=== PATIENT | female | born 1955 | race Caucasian/White ===

== ENCOUNTER 2017-03-12 13:45 | Emergency (ER) | payer OTHER ==
[2017-03-12] MEDS ORDERED: AMPICILLIN SOD/SULBACTAM 3 GM VIAL IV ONE (13:58)
--- NOTE | 2017-03-12 14:08 | ER Document Report ---
ED General - General Stated Complaint: DIFFICULTY BREATHING Time Seen by Provider: 03/12/17 13:58 Mode of Arrival: Medic Information source: Emergency Med Personnel Cannot obtain history due to: Altered mental status Notes: 61-year-old female presents with history of MS with concerns of sob. Pt has inoperable hiatal hernia, had vomiting episode and found satting 84% on RA in significant resp distress. Patient brought in by EMS emergency traffic due to respiratory failure being bagged TRAVEL OUTSIDE OF THE [place] IN LAST 30 DAYS: No - HPI Onset: Just prior to arrival Onset/Duration: Sudden Quality of pain: No pain Severity: Severe Pain Level: Denies Associated symptoms: Shortness of breath, Other - Confusion Exacerbated by: Denies Relieved by: Denies Similar symptoms previously: No Recently seen / treated by doctor: No - Related Data Allergies/Adverse Reactions: cefprozil Allergy (Unknown, Verified 03/12/17 15:26) citric acid Allergy (Unknown, Verified 03/12/17 15:26) codeine Allergy (Unknown, Verified 03/12/17 15:26) ezetimibe [From Zetia] Allergy (Unknown, Verified 03/12/17 15:26) fenofibrate [From Triglide] Allergy (Unknown, Verified 03/12/17 15:26) Latex, Natural Rubber Allergy (Unknown, Verified 03/12/17 15:26) lisinopril Allergy (Unknown, Verified 03/12/17 15:26) shellfish derived Allergy (Unknown, Verified 03/12/17 15:26) metatalone Allergy (Unknown, Uncoded 03/12/17 15:26) metheltrexate Allergy (Unknown, Uncoded 03/12/17 15:26) Past Medical History - Social History Smoking Status: Never Smoker Cigarette use (# per day): No Chew tobacco use (# tins/day): No Smoking Education Provided: No Family History: Reviewed & Not Pertinent Review of Systems - Review of Systems Notes: REVIEW OF SYSTEMS: CONSTITUTIONAL : Denies fever, chills, or sweats. Denies recent illness. EENT: Denies eye, ear, throat, or mouth pain or symptoms. Denies nasal or sinus congestion or discharge. Denies throat, tongue, or mouth swelling or difficulty swallowing. CARDIOVASCULAR: Denies chest pain. Denies palpitations or racing or irregular heart beat. Denies ankle edema. RESPIRATORY: Difficulty breathing and respiratory distress GASTROINTESTINAL: Denies abdominal pain or distention. Denies nausea, vomiting , or diarrhea. Denies blood in vomitus, stools, or per rectum. Denies black, tarry stools. Denies constipation. GENITOURINARY: Denies difficulty urinating, painful urination, burning, frequency, blood in urine, or discharge. FEMALE GENITOURINARY: Denies vaginal bleeding, heavy or abnormal periods, irregular periods. Denies vaginal discharge or odor. MUSCULOSKELETAL: Denies back or neck pain or stiffness. Denies joint pain or swelling. SKIN: Denies rash, lesions or sores. HEMATOLOGIC : Denies easy bruising or bleeding. LYMPHATIC: Denies swollen, enlarged glands. NEUROLOGICAL: Confusion PSYCHIATRIC: Denies anxiety or stress. Denies depression, suicidal ideation, or homicidal ideation. ALL OTHER SYSTEMS REVIEWED AND NEGATIVE. PHYSICAL EXAMINATION: GENERAL: Likely ill-appearing female HEAD: Atraumatic, normocephalic. EYES: Pupils equal round and reactive to light, extraocular movements intact, conjunctiva are normal. ENT: Nares patent, oropharynx clear without exudates. Moist mucous membranes. NECK: Normal range of motion, supple without lymphadenopathy LUNGS: Decreased breath sounds all throughout significant respiratory distress HEART: Regular rate and rhythm without murmurs ABDOMEN: Soft, nontender, nondistended abdomen. No guarding, no rebound. No masses appreciated. Female : deferred Musculoskeletal: Was moving right upper extremity NEUROLOGICAL: Patient quite confused PSYCH: Anxious SKIN: Warm, Dry, normal turgor, no rashes or lesions noted. Dictation was performed using [employer] voice recognition software Physical Exam - Vital signs Vitals: Resp Pulse Ox 17 92 03/12/17 13:51 03/12/17 13:51 Course - Re-evaluation Re-evalutation: 03/12/17 14:08 On arrival patient is noted to be bagged, I took the bag off to ask her questions and she desatted immediately to 90% within 30 seconds, before her O2 sats decreased further I continue to bagging, decision was made since she is a full code per EMS that the patient should be intubated given the level significant respiratory distress, she was intubated with no difficulty x-ray shows a large hiatal hernia 03/12/17 14:36 [employer] [facility] 03/12/17 14:57 Dr Martinez will accept the patient for trasnfer to the ICU 03/12/17 17:34 Patient continues to be hypotensive, 3 L fluid bolus was given her blood pressures were between 60s over 40s-90s over 50s, therefore central line was placed in the right IJ and levo fed will be started 03/12/17 18:39 [employer] [facility] is here to take the patient patient's pressure is much better at this time - Vital Signs Vital signs: Temp Pulse Resp BP Pulse Ox 96.2 F L 16 119/73 98 03/12/17 15:30 03/12/17 18:01 03/12/17 18:00 03/12/17 18:01 - Laboratory Result Diagrams: 03/12/17 13:53 03/12/17 13:53 Laboratory results interpreted by me: 03/12/17 03/12/17 03/12/17 13:53 13:53 13:53 WBC 20.6 H Plt Count 111 L Seg Neuts % (Manual) 82 H Band Neutrophils % 12 H Lymphocytes % (Manual) 3 L Abs Neuts (Manual) 19.4 H VBG pH 7.28 L VBG pCO2 76.3 H* VBG HCO3 35.3 H Sodium 117.9 L* Chloride 76 L Carbon Dioxide 34 H Creatinine 0.26 L Alkaline Phosphatase 176 H Urine Protein Urine Ketones Urine Blood Ur Leukocyte Esterase 03/12/17 17:51 WBC Plt Count Seg Neuts % (Manual) Band Neutrophils % Lymphocytes % (Manual) Abs Neuts (Manual) VBG pH VBG pCO2 VBG HCO3 Sodium Chloride Carbon Dioxide Creatinine Alkaline Phosphatase Urine Protein 100 H Urine Ketones 20 H Urine Blood MODERATE H Ur Leukocyte Esterase LARGE H - Diagnostic Test Radiology reviewed: Image reviewed, Reports reviewed Procedures - Central Line Right Internal jugular Time completed: 18:00 Consent obtained: Yes Central line pre-insertion: Sterile PPE donned, Chloraprep applied, Sterile drapes applied Central line size (Fr.): 20 Central line lumen type: Triple Anesthetic type: 1% Lidocaine mL's of anesthesia: 3 Ultrasound guided: Yes CM at insertion site: 3 Line secured with sutures: Yes Central line post-insertion: Blood return from lumens, Biopatch applied, Sutured , Sterile dressing applied, Position confirmed w/ CXR Number of attempts: 1 Complications: No - Intubation Orotracheal Time of Intubation: 14:00 Airway evaluation: Copious secretions, Neck immobility Mallampati Classification: Class 4 Medications: Etomidate, Succinylcholine Intubation method: Orotracheal Blade type: Molly Blade size: 4 ETT size: 7.0 ETT secured at: Teeth ETT secured at (cm): 22 Breath Sounds after Intubation: Equal End tidal CO2 confirmed: Yes Post Intubation Xray: Yes Intubation Complications: No complications Critical Care Note - Critical Care Note Total time excluding time spent on procedures (mins): 94 Comments: 85 minutes of critical care time spent in direct contact evaluating and reevaluating the patient, treating symptoms, reviewing labs and studies and speaking with family and consultants excluding any procedures Discharge - Discharge Clinical Impression: Septic shock, Severe hyponatremia Hypotension Qualifiers: Hypotension type: unspecified hypotension type Qualified Code(s): I95.9 - Hypotension, unspecified Aspiration pneumonia Qualifiers: Aspiration pneumonia type: unspecified Laterality: right Lung location: lower lobe of lung Qualified Code(s): J69.0 - Pneumonitis due to inhalation of food and vomit Respiratory failure Qualifiers: Chronicity: acute Respiratory failure complication: hypoxia and hypercapnia Qualified Code(s): J96.01 - Acute respiratory failure with hypoxia Condition: Critical Disposition: [facility]
[2017-03-12 14:20] LABS: VENOUS BLOOD BASE EXCESS 5.9 mmol/L; VENOUS BLOOD HCO3 35.3 mmol/L (20-32); VENOUS BLOOD PH 7.28 (7.30-7.42)
[2017-03-12 14:22] LABS: VENOUS BLOOD PCO2 76.3 mmHg (35-63)
[2017-03-12 14:25] LABS: INTERNATIONAL RATION (INR) 0.81; PROTHROMBIN TIME 11.8 SEC (11.4-15.4)
[2017-03-12 14:29] LABS: HEMATOCRIT 38.7 % (36.0-47.0); HEMOGLOBIN 13.3 g/dL (12.0-15.5); MEAN CORPUSCULAR HEMOGLOBIN 31.4 pg (27.0-33.4); MEAN CORPUSCULAR HGB CONC 34.3 g/dL (32.0-36.0); MEAN CORPUSCULAR VOLUME 91 fl (80-97); PLATELET COUNT 111 10^3/uL (150-450); RED BLOOD COUNT 4.23 10^6/uL (3.72-5.28); WHITE BLOOD COUNT 20.6 10^3/uL (4.0-10.5)
[2017-03-12 14:42] LABS: ALANINE AMINOTRANSFERASE 37 U/L (9-52); ALBUMIN 4.3 g/dL (3.5-5.0); ALKALINE PHOSPHATASE 176 U/L (38-126); ASPARTATE AMINO TRANSFERASE 35 U/L (14-36); BILIRUBIN,DIRECT 0.3 mg/dL (0.0-0.4); BILIRUBIN,TOTAL 0.5 mg/dL (0.2-1.3); BLOOD UREA NITROGEN 10 mg/dL (7-20); CARBON DIOXIDE 34 mmol/L (22-30); CHLORIDE 76 mmol/L (98-107); GLUCOSE 90 mg/dL (75-110); POTASSIUM 4.5 mmol/L (3.6-5.0); TOTAL PROTEIN 7.6 g/dL (6.3-8.2)
[2017-03-12 14:44] LABS: ANION GAP 8 (5-19)
[2017-03-12 14:46] LABS: SODIUM 117.9 mmol/L (137-145)
--- NOTE | 2017-03-12 14:57 | RADIOLOGY REPORT (SQ) ---
EXAM DESCRIPTION: CHEST SINGLE VIEW COMPLETED DATE/TIME: 03/12/2017 2:35 pm REASON FOR STUDY: post intubation for aspiration COMPARISON: Abdomen film 03/25/2015 EXAM PARAMETERS: NUMBER OF VIEWS: One view. TECHNIQUE: Single frontal radiographic view of the chest acquired. RADIATION DOSE: NA LIMITATIONS: None. FINDINGS: LUNGS AND PLEURA: New abnormal air space density in the left mid lung consistent with aspi ration or pneumonia. Remainder lungs appear clear. No definite effusion. MEDIASTINUM AND HILAR STRUCTURES: Large diaphragmatic hernia extending into the lower right chest. HEART AND VASCULAR STRUCTURES: Cardiac silhouette is of normal size. Mild vascular prominence felt t o be related to the supine nature of the exam BONES: No acute findings. HARDWARE: Endotracheal tube with its tip 2.5 cm above the judith. Additional catheter is noted with tip overlying the lower neck which may represent NG tube. OTHER: No other significant finding. IMPRESSION: 1. Large diaphragmatic hernia, a chronic finding. 2. Endotracheal tube is in good position. 3. New abnormal density in the left mid lung consistent with aspiration or pneumonia. TECHNICAL DOCUMENTATION: JOB ID: [id number] [employer]- All Rights Reserved
[2017-03-12 15:00] LABS: ABSOLUTE LYMPHOCYTES# (MANUAL) 0.6 10^3/uL (0.5-4.7); ABSOLUTE MONOCYTES # (MANUAL) 0.6 10^3/uL (0.1-1.4); ABSOLUTE NEUTROPHILS# (MANUAL) 19.4 10^3/uL (1.7-8.2); BAND NEUTROPHILS % (MANUAL) 12 % (3-5); BASOPHILS % (MANUAL) 0 % (0-2); EOSINOPHILS % (MANUAL) 0 % (0-6); HYPOCHROMASIA SLIGHT; LYMPHOCYTES % (MANUAL) 3 % (13-45); MONOCYTES % (MANUAL) 3 % (3-13); PLATELET COMMENT DECREASED; SEGMENTED NEUTROPHILS % (MAN) 82 % (42-78); TOTAL CELLS COUNTED 100; TOXIC GRANULATION SLIGHT; TOXIC VACUOLATION PRESENT
[2017-03-12] MEDS ORDERED: PROPOFOL 100 ML IV PRN (15:30)
[2017-03-12] MEDS ORDERED: FENTANYL CITRATE INJ/PF 250 MCG/5 ML AMPULE IV ONE (15:30)
[2017-03-12] MEDS ORDERED: SUCCINYLCHOLINE CHLORIDE INJ 200 MG/10 ML VIAL IV ONE (15:32)
[2017-03-12] MEDS ORDERED: ETOMIDATE INJ/PF 20 MG/10 ML SDV IV ONE (15:32)
[2017-03-12] MEDS ORDERED: FENTANYL CITRATE INJ/PF 100 MCG/2 ML AMPUL ONE (15:51)
[2017-03-12] MEDS: NORMAL SALINE 1000 ML 1,000 ML IV PRN ×2 (15:55→17:58)
[2017-03-12] MEDS ORDERED: FENTANYL CITRATE INJ/PF 100 MCG/2 ML AMPUL IV ONE (16:00)
[2017-03-12] MEDS ORDERED: MIDAZOLAM HCL 50 MG/100 ML RTUINJ IV PRN (16:06)
[2017-03-12] MEDS ORDERED: NORMAL SALINE 1000 ML 1,000 ML IV ONE (16:51)
[2017-03-12] MEDS ORDERED: DEXTROSE 5%-WATER 250 ML with NOREPINEPHRINE BITARTRATE 4 MG IV PRN ×2 (17:13)
[2017-03-12] MEDS ORDERED: NOREPINEPHRINE BITARTRATE INJ/PF 4 MG/4 ML SDV IV ONE (17:21)
--- NOTE | 2017-03-12 18:05 | RADIOLOGY REPORT (SQ) ---
EXAM DESCRIPTION: CHEST SINGLE VIEW COMPLETED DATE/TIME: 03/12/2017 5:55 pm REASON FOR STUDY: post right IJ central line COMPARISON: 03/12/2017 at 1402 hours. EXAM PARAMETERS: NUMBER OF VIEWS: One view. TECHNIQUE: Single frontal radiographic view of the chest acquired. RADIATION DOSE: NA LIMITATIONS: None. FINDINGS: LUNGS AND PLEURA: Assessment lower right lung limited due to the large hiatal hernia. No pneumothorax. Again seen is airspace disease in the left lung. MEDIASTINUM AND HILAR STRUCTURES: No masses. Contour normal. HEART AND VASCULAR STRUCTURES: Heart normal in size. Normal vasculature. BONES: No acute findings. HARDWARE: Central line on the right side with the tip at the level of the cavoatrial junction. Stabl e endotracheal tube. Additional tubing in the neck is probably nasogastric tube which has curled in the throat. Tip at the level of the clavicles. OTHER: No other significant finding. IMPRESSION: LIFE LINES DESCRIBED. NASOGASTRIC TUBE NEEDS TO BE REPOSITIONED. NO PNEUMOTHORAX FO LLOWING CENTRAL LINE PLACEMENT. TECHNICAL DOCUMENTATION: JOB ID: [id number] [employer]- All Rights Reserved
[2017-03-12 18:37] LABS: AMORPHOUS SEDIMENT,URINE TRACE /HPF; APPEARANCE,URINE CLOUDY; BILIRUBIN,URINE NEGATIVE (NEGATIVE); COLOR,URINE YELLOW; GLUCOSE, URINE NEGATIVE (NEGATIVE); KETONES,URINE 20 mg/dL (NEGATIVE); LEUKOCYTE ESTERASE,URINE LARGE (NEGATIVE); NITRITE,URINE NEGATIVE (NEGATIVE); PROTEIN,URINE 100 mg/dL (NEGATIVE); URINE SPECIFIC GRAVITY 1.023; UROBILINOGEN,URINE NEGATIVE mg/dL (<2.0)
[2017-03-12 18:52] LABS: ARTERIAL BLOOD BASE EXCESS 0.5 mmol/L; ARTERIAL BLOOD H2CO3 1.23 mmol/L (1.05-1.35); ARTERIAL BLOOD HCO3 25.2 mmol/L (20-26); ARTERIAL BLOOD O2 SATURATION 98.5 % (94-98); ARTERIAL BLOOD PCO2 40.9 mmHg (35-45); ARTERIAL BLOOD PH 7.41 (7.35-7.45); ARTERIAL BLOOD PO2 126.8 mmHg (80-100); ARTERIAL BLOOD TOTAL CO2 26.4 mmol/L (21-25)
[2017-03-12 18:53] LABS: ARTERIAL BLOOD FIO2 80%
[2017-03-12 19:33] VITALS: BP 121/70
[2017-03-12] MEDS ORDERED: SUCCINYLCHOLINE CHLORIDE INJ 200 MG/10 ML VIAL ONE (21:55)
--- NOTE | 2017-03-12 23:33 | EKG REPORT ---
SEVERITY:- ABNORMAL ECG - SINUS TACHYCARDIA LEFT ATRIAL ABNORMALITY CONSIDER LEFT VENTRICULAR HYPERTROPHY PROBABLE INFERIOR INFARCT, OLD : Confirmed by: Era Meredith 12-Mar-2017 23:33:35
== END 2017-03-12 18:45 ==
LOC: ER 13:45
DX: A41.9 Sepsis, unspecified organism (principal); R65.21 Severe sepsis with septic shock; J69.0 Pneumonitis due to inhalation of food and vomit; J96.01 Acute respiratory failure with hypoxia; J96.02 Acute respiratory failure with hypercapnia; I95.9 Hypotension, unspecified; E87.1 Hypo-osmolality and hyponatremia; K44.9 Diaphragmatic hernia without obstruction or gangrene; R41.0 Disorientation, unspecified; Z88.5 Allergy status to narcotic agent; Z88.1 Allergy status to other antibiotic agents; Z88.8 Allergy status to other drugs, medicaments and biological substances; Z91.040 Latex allergy status; Z91.013 Allergy to seafood
CPT/HCPCS: 93005; 99291; 99292; 96361; 96365; 96367; 36415; 87040; 87086; 82962; 82803 ×2; 85025; 85610; 87088; 80053; 81001; 87186; 83605; 71045; 93010; 31500; 36556; C1751; J0295; J2704; J3490; J0330; J2250; J7060; J7030